=== PATIENT | male | born 1970 | race Two or more races ===

== ENCOUNTER 2020-10-24 04:33 | Day surgery (SDC) | payer OTHER ==
[2020-10-23 09:34] VITALS: BMI 23.6
[2020-10-24] MEDS ORDERED: BUPIVACAINE HCL/PF 0.25% (2.5MG/ML) 10 ML VIAL ONE (13:11)
[2020-10-24] MEDS ORDERED: MIDAZOLAM HCL 2 MG/2 ML SINGLE DOSE VIAL ONE (13:41)
[2020-10-24] MEDS ORDERED: PROPOFOL 20 ML ONE ×2 (13:41)
[2020-10-24] MEDS ORDERED: BUPIVACAINE HCL/PF 0.5% (5 MG/ML) 30 ML VIAL IJ ONE (14:00)
[2020-10-24] MEDS ORDERED: BUPIVACAINE HCL/PF 0.5% (5MG/ML) 10 ML VIAL NR ONE (14:00)
[2020-10-24] MEDS ORDERED: BACITRACIN 15 GM TUBE TOPICAL OINTMENT ONE (14:17)
[2020-10-24 17:11] VITALS: BP 149/81; PULSE 76; TEMP 98
== END 2020-10-24 17:30 | disposition home or self-care (01) ==
LOC: JASU-SURG 04:33
PROVIDERS: ATTEND Urology
PROC: 0VTTXZZ Resection of Prepuce, External Approach (ICD-10-PCS; principal; 2020-10-24 14:02)
DX: N47.1 Phimosis (principal); E11.9 Type 2 diabetes mellitus without complications; Z79.84 Long term (current) use of oral hypoglycemic drugs
CPT/HCPCS: 82962; 88304-TC; 94760